=== PATIENT | female | born 1985 | race Caucasian/White ===

== ENCOUNTER 2018-12-14 14:17 | Emergency (ER) | payer OTHER ==
[~2018-12-14] VITALS: Ht 167.6 cm; Wt 90.7 kg
[2018-12-14] MEDS ORDERED: ZOLOFT100 MG PO (14:22)
[2018-12-14] MEDS ORDERED: MINIPRESS2 MG PO (14:22)
[2018-12-14] MEDS ORDERED: XANAX XR1 MG PO (14:22)
[2018-12-14] MEDS ORDERED: VITAMIN D350000 UNIT PO (14:23)
[2018-12-14] MEDS ORDERED: NAPROSYN500 MG PO (16:38)
[2018-12-14] MEDS ORDERED: NORFLEX100 MG PO (16:38)
[2018-12-14 16:46] VITALS: BP 133/87
[2018-12-14] MEDS ORDERED: HYDROCODONE-AP1 EAC6 PO (16:47)
== END 2018-12-14 16:50 | disposition home or self-care (01) ==
LOC: ER 14:17
DX: S16.1XXA Strain of muscle, fascia and tendon at neck level, initial encounter (principal); S70.11XA Contusion of right thigh, initial encounter; S20.211A Contusion of right front wall of thorax, initial encounter; M25.511 Pain in right shoulder; N80.9 Endometriosis, unspecified; Z90.710 Acquired absence of both cervix and uterus; V43.52XA Car driver injured in collision with other type car in traffic accident, initial encounter; Y93.89 Activity, other specified; Y92.89 Other specified places as the place of occurrence of the external cause; Y99.8 Other external cause status